=== PATIENT | female | born 1980 | race African-American/Black ===

== ENCOUNTER 2018-02-04 15:28 | Emergency (ER) | payer OTHER ==
[2018-02-04 15:45] VITALS: BP 157/92
--- NOTE | 2018-02-04 16:06 | ED Physician Documentation ---
History of Present Illness - Stated complaint Stated Complaint: NEEDLE STICK - Chief complaint Chief Complaint: Needlestick - History obtained from History obtained from: Patient - Additonal information Additional information: 37-year-old female presents the emergency department for evaluation of a needlestick which occurred at an outside detention facility. The needle was in a sharps container and the patient unfortunately stuck herself. It did draw blood. The patient does not believe that any of the residents at the facility have HIV or hepatitis C but she has unsure. The patient is up-to-date on her tetanus and hepatitis B series. The patient has no acute pain or bleeding presently. Review of Systems Constitutional: denies: Fever Nose: denies: Congestion Respiratory: denies: Cough GI: denies: Nausea Skin: reports: Other (Puncture wound) Musculoskeletal: denies: Neck pain Neurologic: denies: Generalized weakness Immunocompromised: denies: Chemotherapy PD PAST MEDICAL HISTORY - Past Medical History Past Medical History: No - Past Surgical History Past Surgical History: No - Present Medications Home Medications: Ambulatory Orders Medication Instructions Recorded Confirmed Telmisartan [Micardis] 20 mg PO 02/04/18 amLODIPine [Norvasc] 5 mg PO DAILY 02/04/18 02/04/18 - Allergies Allergies/Adverse Reactions: Allergies Allergy/AdvReac Type Severity Reaction Status Date / Time No Known Drug Allergies Allergy Verified 02/04/18 15:41 - Social History Does the pt smoke?: No Smoking Status: Never smoker Does the pt drink ETOH?: Yes Does the pt have substance abuse?: No - Immunizations Immunizations are current?: Yes - POLST Patient has POLST: No PD ED PE NORMAL - General General: Alert and oriented X 3, No acute distress - HEENT HEENT: Atraumatic, PERRL, EOMI, Ears normal - Derm Derm: Normal color, Other (Small puncture wound on the volar side of the distal right thumb. No active bleeding) - Extremities Extremities: No deformity, No tenderness to palpate, Normal ROM s pain - Neuro Neuro: Alert and oriented X 3, Normal speech - Psych Psych: Normal affect Results - Vitals Vitals: Vital Signs - 24 hr 02/04/18 15:42 Temperature 36.4 C L Heart Rate 66 Respiratory 16 Rate Blood Pressure 157/92 H O2 Saturation 100 Oxygen O2 Source Room air PD MEDICAL DECISION MAKING - ED course ED course: The patient's work has no employee policy to arrange for outpatient lab work for a needlestick. The patient was sent to the emergency department for evaluation. I discussed with the patient HIV prophylaxis, I explained the risks and benefits related to the prophylaxis. The patient has refused any HIV prophylaxis currently. The patient is only requesting lab work be drawn. Lab work was drawn for the needlestick, the patient will have her primary care on would be [facility] follow-up on the lab work. I discussed warning signs and recommended returning to the emergency department for any worsening or concerns. Departure - Departure Disposition: 01 Home, Self Care Clinical Impression: Needle stick injury Condition: Good Instructions: ED Wound Puncture General Follow-Up: ARLETH Ramirez [Provider Group] - Within 3 Days (Please follow-up with your provider at [facility] would be for the results of the lab work drawn in the emergency department today) Comments: Please return to the emergency department for any worsening or any concerns.
[2018-02-04 17:20] LABS: ALBUMIN/GLOBULIN RATIO 1.3 (1.0-2.2); BILIRUBIN,TOTAL 0.6 mg/dL (0.2-1.0); CALCIUM 9.6 mg/dL (8.5-10.3); CREATININE 0.6 mg/dL (0.4-1.0); TOTAL PROTEIN 8.9 g/dL (6.7-8.2)
[2018-02-05 14:02] LABS: HEPATITIS C ANTIBODY NON-REACTIVE (NON-REACTIVE)
[2018-02-05 14:41] LABS: HIV AG/AB 4TH GEN NON-REACTIVE (NON-REACTIVE)
== END 2018-02-04 17:08 | disposition home or self-care (01) ==
LOC: ED 15:28
DX: S61.031A Puncture wound without foreign body of right thumb without damage to nail, initial encounter (principal); W46.0XXA Contact with hypodermic needle, initial encounter; Y92.129 Unspecified place in nursing home as the place of occurrence of the external cause; Y99.0 Civilian activity done for income or pay
CPT/HCPCS: 1040M; 36415; 80053; 86317; 86803; 87389; 99282; 99283